=== PATIENT | male | born 1955 | race Caucasian/White ===

== ENCOUNTER 2017-06-27 09:37 | Day surgery (SDC) | payer BC ==
[~2017-06-27] VITALS: Ht 170.2 cm; Wt 77.6 kg
[~2017-06-27 09:37] MED LIST: PROPOFOL 200 MG/20 ML VIAL As Ordered ONE
[2017-06-27] MEDS ORDERED: NS 1,000 ML IV ONE (10:00)
--- NOTE | 2017-06-27 10:59 | ROOR ---
Patient Name: Marlon Epperson Procedure Date: 06/27/2017 10:41 AM Date of : 1955 Age: 61 Room: [facility] Gender: Male Note Status: Finalized Procedure: Total Colonoscopy to Cecum Indications: High risk colon cancer surveillance: Personal history of colonic polyps, Incidental - Follow-up for history of colon polyps of uncertain behavior Providers: Bret Ruiz MD Referring MD: Xavier Turner MD Requesting Provider: Medicines: Monitored Anesthesia Care Complications: No immediate complications. Procedure: Pre-Anesthesia Assessment: - The heart rate, respiratory rate, oxygen saturations, blood pressure, adequacy of pulmonary ventilation, and response to care were monitored throughout the procedure. The Colonoscope was introduced through the anus and advanced to the cecum, identified by appendiceal orifice and ileocecal valve. The colonoscopy was performed without difficulty. The patient tolerated the procedure well. The quality of the bowel preparation was excellent. Findings: The perianal and digital rectal examinations were normal. Non-bleeding internal hemorrhoids were found during retroflexion. The hemorrhoids were small and Grade I (internal hemorrhoids that do not prolapse). Scattered small-mouthed diverticula were found in the recto-sigmoid colon, sigmoid colon and descending colon. The exam was otherwise without abnormality on direct and retroflexion views. Impression: - Non-bleeding internal hemorrhoids. - Diverticulosis in the recto-sigmoid colon, in the sigmoid colon and in the descending colon. - The examination was otherwise normal on direct and retroflexion views. - No specimens collected. - The exam was otherwise normal to the cecum. Recommendation: - Patient has a contact number available for emergencies. The signs and symptoms of potential delayed complications were discussed with the patient. Return to normal activities tomorrow. Written discharge instructions were provided to the patient. - High fiber diet. - Discharge patient to home. - Continue present medications. - Repeat colonoscopy in 5 years for surveillance. - Return to referring physician. - The findings and recommendations were discussed with the patient's family. Bret Ruiz MD Bret Ruiz MD 06/27/2017 10:59:31 AM This report has been signed electronically. Number of Addenda: 0 Note Initiated On: 06/27/2017 10:41 AM Estimated Blood Loss: Estimated blood loss: none.
[2017-06-27 11:19] VITALS: BP 141/94
== END 2017-06-27 11:20 | disposition home or self-care (01) ==
LOC: M OPP 09:37
PROVIDERS: ATTEND Internal Medicine Gastroenterology
DX: Z09 Encounter for follow-up examination after completed treatment for conditions other than malignant neoplasm (principal); D37.4 Neoplasm of uncertain behavior of colon; Z86.010 Personal history of colon polyps; K64.0 First degree hemorrhoids; K57.30 Diverticulosis of large intestine without perforation or abscess without bleeding; M25.60 Stiffness of unspecified joint, not elsewhere classified; Z87.891 Personal history of nicotine dependence

== ENCOUNTER 2017-11-02 17:35 | Emergency (ER) | payer BC | END 2017-11-02 21:24 | disposition home or self-care (01) | LOC: M ED 17:35 | DX: R60.0 Localized edema (principal) | CPT/HCPCS: 93971 ==

== ENCOUNTER → 2020-08-06 | Outpatient (REF) | payer OTHER ==
[2020-08-08 07:07] LABS: PSA % FREE 6.3 % (.); PSA FREE 0.31 ng/mL; PSA TOTAL 4.9 ng/mL (0.0-4.0)
== END ==
LOC: M LABSMT 09:49
PROVIDERS: ATTEND Nurse Practitioner Family
DX: R97.20 Elevated prostate specific antigen [PSA] (principal)

== ENCOUNTER → 2020-09-09 | Outpatient (CLI) | payer OTHER ==
--- NOTE | 2020-09-09 14:47 | REPPI ---
INDICATION: ELEVATED PSA. COMPARISON: None. TECHNIQUE: Transrectal prostate ultrasound performed. FINDINGS: Prostate measures 3.1 x 2.1 x 4.2 cm, total volume 14.3 mL. Echotexture is heterogeneous. Tiny cysts and calcifications are noted in the prostate. No focal mass is seen. Seminal vesicles are symmetrical. IMPRESSION: Ultrasound guidance was provided for Dr. Negro who performed ultrasound-guided biopsy of the prostate. <Electronically signed by Regan Das > 09/09/20 [id number]
== END ==
LOC: M SMT PRO 08:18
PROVIDERS: ATTEND Urology
DX: C61 Malignant neoplasm of prostate (principal)
CPT/HCPCS: 76872; G0416

== ENCOUNTER → 2020-09-30 | Outpatient (CLI) | payer OTHER ==
[~2020-09-30] MED LIST changes: +ATOR40TA75 PO; -PROPOFOL 200 MG/20 ML VIAL As Ordered ONE
--- NOTE | 2020-10-01 07:40 | ECGEPIP ---
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
== END ==
LOC: M EKG 15:15
PROVIDERS: ATTEND Urology
DX: Z01.818 Encounter for other preprocedural examination (principal); C61 Malignant neoplasm of prostate

== ENCOUNTER → 2020-09-30 | Outpatient (CLI) | payer OTHER ==
[2020-09-30 17:29] LABS: HEMOGLOBIN 14.5 g/dl (13.5-17.5); MEAN CORPUSCULAR HEMOGLOBIN 30.2 pg (27.0-33.0); MEAN CORPUSCULAR HGB CONC 32.2 g/dl (32.0-36.5); MEAN CORPUSCULAR VOLUME 93.8 fl (80.0-96.0); PLATELET COUNT, AUTOMATED 227 10^3/uL (150-450); WHITE BLOOD COUNT 7.3 10^3/uL (4.0-10.0)
[2020-09-30 17:40] LABS: INR 0.96
[2020-09-30 17:41] LABS: PARTIAL THROMBOPLASTIN TIME 33.6 SECONDS (24.2-38.5)
[2020-09-30 17:46] LABS: BLOOD UREA NITROGEN 14 MG/DL (7-18); CALCIUM LEVEL 8.5 MG/DL (8.8-10.2); CARBON DIOXIDE LEVEL 30 MEQ/L (21-32); CHLORIDE LEVEL 103 MEQ/L (98-107); GLOMERULAR FILTRATION RATE > 60.0 (>49); GLUCOSE, FASTING 96 MG/DL (70-100); POTASSIUM SERUM 5.1 MEQ/L (3.5-5.1); SODIUM LEVEL 139 MEQ/L (136-145)
--- NOTE | 2020-10-01 04:05 | REPPI ---
INDICATION: PRE OP COMPARISON: 12/02/2006 TECHNIQUE: PA and lateral. FINDINGS: The mediastinum and cardiac silhouette are normal. The lung brady are clear and without acute consolidation, effusion, or pneumothorax. The skeletal structures are intact and normal. IMPRESSION: No acute cardiopulmonary process. <Electronically signed by Ortiz Garrison > 10/01/20 1459
== END ==
LOC: M PLAIMG 14:22
PROVIDERS: ATTEND Urology
DX: Z01.818 Encounter for other preprocedural examination (principal); C61 Malignant neoplasm of prostate

== ENCOUNTER → 2020-10-03 | Outpatient (CLI) | payer OTHER | LOC: M LABSMTC 12:14 | PROVIDERS: ATTEND Anesthesiology | DX: Z01.812 Encounter for preprocedural laboratory examination (principal); Z20.822 Contact with and (suspected) exposure to COVID-19 ==

== ENCOUNTER 2020-10-08 09:03 | Inpatient (IN) | payer OTHER ==
[~2020-10-08] VITALS: Ht 167.6 cm; Wt 80.2 kg
[~2020-10-08 09:03] MED LIST changes: +HEPARIN SOD (PORCINE) 5000UNITS/ML 1ML VIAL/SYRINGE SQ ONE; +LIDOCAINE 1% MDV 20ML VIAL SQ PRN; +LR 1,000 ML IV ONE; +ceFAZolin SOD 2 GM in IV 1 EA IV ONE
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
--- OUTSIDE RECORDS SUMMARY | 2020-10-08 09:09 | CCD ---
Author Author [facility] [employer] Organization [facility] [employer] Address Unknown Phone Unavailable Care Team Providers Care Concession Attendant Name Role Phone Amandeep Negro Unavailable PROBLEMS Type Condition ICD9-CM Code [id number] Code Onset Dates Condition S tatus SNOMED Code Notes Problem Elevated PSA R97.20 Active 193260290 Problem Prostate cancer C61 Active 382918792 ALLERGIES No Known Allergies ENCOUNTERS from 1955 to 2020-09-19 Encounter Location Date Provider Diagnosis [facility] [address] [facility] [facility] [place] [address] Aug Amandeep Negro Prostate cancer C61 IMMUNIZATIONS No Information SOCIAL HISTORY Tobacco Use: Social History Observation Description Date Details (start date - stop date) Former Smoker Sex Assigned At : Social History Observation Description Sex Assigned At Unknown Language: Question Answer Notes Languages spoken: Vincentian Orthodox: Question Answer Notes Orthodox No congregational beliefs that would impact health care. Alcohol [...] FOR REFERRAL No Information VITAL SIGNS Weight 178 lbs Aug, Height 66 in Aug, BMI 28.73 kg/m2 Aug, Heart Rate 66 /min Aug, Respiratory Rate 18 /min Aug, Temperature 97.3 degrees Fahrenheit 26 Cole, 2021 Oximetry 99% Aug, Blood pressure systolic 108 mm Hg Aug, Blood pressure diastolic 62 mm Hg Aug, MEDICATIONS Medication SIG (Take, Route, Frequency, Duration) Notes Start Da te End Date Status Ciprofloxacin HCl 500 MG 1 tablet the night before yo ur biopsy and 1 the morning of Orally every 12 hrs for 1 days Jul, Not-Taking Fleet Enema 7-19 GM/118ML as directed Rectal the morni ng of your biopsy for 1 days Jul, Not-Taking Atorvastatin Calcium 40 MG 1 tablet Orally Once a day for 30 day(s) Active PROCEDURES No Information RESULTS No Results REASON FOR VISIT Trus f/u MEDICAL (GENERAL) HISTORY Type Description Date Medical [...] Notes Treatment Notes Treatm ent Clinical Notes Aug, Prostate cancer (ICD-10 - C61) Prostate cancer material was printed,Prostatectomy material was printed - pathology results explained - treatment options discussed in detail - patient will consider treatment options and f/u in a week or so to decide on treatment Aug, Other Radiation therapy: external material was printed PLAN OF TREATMENT Treatment Notes Assessment Notes Clinical Notes Prostate cancer Prostate cancer material was printed,Prostatectomy material was printed - pathology results explained- treatment options discussed in detail- patient will consider treatment options and f/u in a week or so to decide on treatment Next Appt Details 1-3 wks Reason:discuss prostate cancer t reatment Provider Name:Amandeep Negro, 02:00:00 PM, [address], [place], [address], Follow Up:1-3 wksdisckalpesh prostate cancer treatment Insurance Providers Payer Name Payer Address Payer Phone Insured Name Patient Relati onship to Insured Coverage Start Date Coverage End Date [facility] [address] [address] [facility] [phone] JAYJAY BETH self
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
--- OUTSIDE RECORDS SUMMARY | 2020-10-08 09:10 | CCD ---
Author Author [facility] Organization [facility] Address Unknown Phone Unavailable Support Name Relationship Address Phone NINI [place] [address] NO, EMERGENCY Next Of Kin [address] [place] [address] [employer] Next Of Kin [address] [place] [address] ORLIN BETH Next Of Kin [address] [place] [address] NO, EMERGENCY ECON [address] [place] [address] Unavailable Re-disclosure Warning The records that you are about to access may contain information from federally-assisted alcohol or drug abuse programs. If such information is present, then the following federally mandated warning applies: This information has been disclosed to you from records protected by federal confidentiality rules (42 CFR part 2). The federal rules prohibit you from making any further disclosure of this information unless further disclosure is expressly permitted by the written consent of the person to whom it pertains or as otherwise permitted by 42 CFR part 2. A general authorization for the release of medical or other information is NOT sufficient for this purpose. The Federal rules restrict any use of the information to criminally investigate or prosecute any alcohol or drug abuse patient.The records that you are about to access may contain highly sensitive health information, the redisclosure of which is protected by Article 27-F of the [facility] Public Health law. If you continue you may have access to information: Regarding HIV / AIDS; Provided by facilities licensed or operated by the [facility] Office of Mental Health; or Provided by the [facility] Office for People With Developmental Disabilities. If such information is present, then the following [facility] mandated warning applies: This information has been disclosed to you from confidential records which are protected by state law. State law prohibits you from making any further disclosure of this information without the specific written consent of the person to whom it pertains, or as otherwise permitted by law. Any unauthorized further disclosure in violation of state law may result in a fine or long term sentence or both. A general authorization for the release of medical or other information is NOT sufficient authorization for further disc losure. Family History Family Member Name Family Member Gender Family Member Status Date o f Status Description Data Source(s) Unknown Unknown Problem MEDENT ([facility]) mother/father/brother Unknown Female Problem [facility] ([facility]) Encounters Encounter Providers Location Date Indications Data Source(s ) Outpatient [address] [facility] [id number] 09/23/2020 12:00:00 AM EST eCW1 ([facility]) Outpatient [address] [facility] [id number] 09/16/2020 12:00:00 AM EST eCW1 ([facility]) (Trus Bx1) Urology [address] [place] [address] 09/09/2020 12:00:00 AM EST eCW1 ([facility]) Unknown [address] [facility] [address] 08/11/2020 12:00:00 AM EST eCW1 ([facility]) Outpatient [address] [facility] [id number] 08/06/2020 12:00:00 AM EST eCW1 ([facility]) Medications Medication Brand Name Start Date Product Form Dose Route Admi nistrative Instructions Pharmacy Instructions Status Indications Reaction Description Data Source(s) Sodium Phosphate, Dibasic 59.3 MG/ML / S odium Phosphate, Monobasic 161 MG/ML Enema Fleet Enema 7-19 GM/118ML Fleet Enema 7-19 GM/118ML 08/11/2020 12:00:00 AM EST active Fleet Enema 7-19 GM/118ML eCW1 ([facility]) Sodium Phosphate, Dibasic 59.3 MG/ML / S odium Phosphate, Monobasic 161 MG/ML Enema Fleet Enema 7-19 GM/118ML Fleet Enema 7-19 GM/118ML 08/11/2020 12:00:00 AM EST suspended Fleet Enema 7- 19 GM/118ML eCW1 ([facility]) 19-7 gram/118 mL 08/11/2020 12:00:00 AM EST enema 133 INSERT 1 ENEMA RECTALLY THE MORNING OF YOUR BIOPSY DIRECTED INSERT 1 ENEMA RECTALLY THE MORNING OF YOUR BIOPSY DIRECTED SOLD: 08/11/2020 [facility] Ciprofloxacin 500 MG Oral Tablet Ciprofloxacin HCl 500 MG Ciprofloxacin HCl 500 MG 08/11/2020 12:00:00 AM EST active Ciprofloxacin HCl 500 MG eCW1 ([facility]) Sodium Phosphate, Dibasic 59.3 MG/ML / S odium Phosphate, Monobasic 161 MG/ML Enema Fleet Enema 7-19 GM/118ML Fleet Enema 7-19 GM/118ML 08/11/2020 12:00:00 AM EST active Fleet Enema 7-19 GM/118ML eCW1 ([facility]) Ciprofloxacin 500 MG Oral Tablet Ciprofloxacin HCl 500 MG Ciprofloxacin HCl 500 MG 08/11/2020 12:00:00 AM EST active Ciprofloxacin HCl 500 MG eCW1 ([facility]) Sodium Phosphate, Dibasic 59.3 MG/ML / S odium Phosphate, Monobasic 161 MG/ML Enema Fleet Enema 7-19 GM/118ML Fleet Enema 7-19 GM/118ML 08/11/2020 12:00:00 AM EST active Fleet Enema 7-19 GM/118ML eCW1 ([facility]) Sodium Phosphate, Dibasic 59.3 MG/ML / S odium Phosphate, Monobasic 161 MG/ML Enema Fleet Enema 7-19 GM/118ML Fleet Enema 7-19 GM/118ML 08/11/2020 12:00:00 AM EST suspended Fleet Enema 7- 19 GM/118ML eCW1 ([facility]) 500 mg 08/11/2020 12:00:00 AM EST tablet 2 TAKE ONE TABLET BY MOUTH THE NIGHT BEFORE YOUR BIOPSY AND ONE TABLET THE MORNING OF, SEPARATE BY 12 HOURS TAKE ONE TABLET BY MOUTH THE NIGHT BEFORE YOUR BIOPSY AND ONE TABLET THE MORNING OF, SEPARATE BY 12 HOURS SOLD: 08/11/2020 [facility] Ciprofloxacin 500 MG Oral Tablet Ciprofloxacin HCl 500 MG Ciprofloxacin HCl 500 MG 08/11/2020 12:00:00 AM EST active Ciprofloxacin HCl 500 MG eCW1 ([facility]) Ciprofloxacin 500 MG Oral Tablet Ciprofloxacin HCl 500 MG Ciprofloxacin HCl 500 MG 08/11/2020 12:00:00 AM EST suspended Ciprofloxacin HCl 500 MG eCW1 ([facility]) Ciprofloxacin 500 MG Oral Tablet Ciprofloxacin HCl 500 MG Ciprofloxacin HCl 500 MG 08/11/2020 12:00:00 AM EST suspended Ciprofloxacin HCl 500 MG eCW1 ([facility]) Insurance Providers Payer name Policy type / Coverage type Policy ID Covered alliance party ID Covered alliance party's relationship to ivy Policy Ivy Plan Information [facility] [id number] SP [id number] [facility] [id number] SP [id number] [facility] [id number] S [id number] BCBS/[employer] Commercial [id number] Self KH [id number] [place] PPO 302/307 [id number] SP [id number] [employer] BCBS B [id number] S [id number] [id number] [employer] Commercial [id number] Self KH [id number] [place] PPO 302/307 [id number] SP [id number] [employer] [place] Commercial [id number] Self [id number] BCBS [place] PPO 302/307 [id number] SP [id number] [employer] [place] Commercial Self Problems, Conditions, and Diagnoses Code Display Name Description Problem Type Effective Dates Data Source(s) N39.0 Urinary tract infectious disease UTI (urinary tract in fection) Problem 09/23/2020 12:00:00 AM EST eCW1 ([facility]) Z01.818 Pre-procedure evaluation check Preop testing Problem 09/23/2020 12:00:00 AM EST eCW1 ([facility]) C61 Prostate cancer Prostate cancer Problem 09/16/2020 12:0 0:00 AM EST eCW1 ([facility]) R97.20 Elevated PSA Elevated PSA Problem 08/06/2020 12:00:00 A M EST eCW1 ([facility]) Results ID Date Data Source [id number] 10/03/2020 10:45:00 AM EST [facility] Name Value Range Interpretation Code Description Data Phyllis rce(s) Supporting Document(s) SARS coronavirus 2 RNA Not Detected [facility] [place] This lab was ordered by [facility] and reported by [facility]. ID Date Data Source PSA FREE & TOTAL 08/06/2020 12:00:00 AM EST eCW1 ([facility]) Name Value Range Interpretation Code Description Data Phyllis rce(s) Supporting Document(s) 4.9 0.0-4.0 [facility] ([facility]) . [facility]) 6.3 . eCW1 ([facility]) 0.31 N/A eCW1 ([facility]) ID Date Data Source URINE CULTURE 08/06/2020 12:00:00 AM EST eCW1 ([facility]) Name Value Range Interpretation Code Description Data Phyllis rce(s) Supporting Document(s) eCW1 ([facility]) Procedure Social History Code Duration Value Status Description Data Source(s ) Smoking 09/23/2020 12:00:00 AM EST Former Smoker completed Former Smoker eCW1 ([facility]) Smoking 09/16/2020 12:00:00 AM EST Former Smoker completed Former Smoker eCW1 ([facility]) Smoking 09/09/2020 12:00:00 AM EST Former Smoker completed Former Smoker eCW1 ([facility]) Smoking 08/06/2020 12:00:00 AM EST Former Smoker completed Former Smoker eCW1 ([facility]) Smoking 08/06/2020 12:00:00 AM EST Former Smoker completed Former Smoker eCW1 ([facility]) Vital Signs ID Date Data Source UNK Name Value Range Interpretation Code Description Data Source(s) Diastolic blood pressure 72 mm[Hg] 72 mm[Hg] eCW1 ([facility]) Systolic blood pressure 144 mm[Hg] 144 mm[Hg] e CW1 ([facility]) Body temperature 97.6 [degF] 97.6 [degF] eCW1 ( [facility]) Respiratory rate 18 /min 18 /min eCW1 ([facility]) Heart rate 80 /min 80 /min eCW1 ([facility]) Body mass index (BMI) [Ratio] 29.37 kg/m2 29.37 kg/m2 eCW1 ([facility]) Body height 66 [in_i] 66 [in_i] eCW1 ([facility]) Body weight 182 [lb_av] 182 [lb_av] eCW[facility] Diastolic blood pressure 62 mm[Hg] 62 mm[Hg] eCW1 ([facility]) Systolic blood pressure 108 mm[Hg] 108 mm[Hg] e CW1 ([facility]) Body temperature 97.3 [degF] 97.3 [degF] eCW1 ( [facility]) Respiratory rate 18 /min 18 /min eCW1 ([facility]) Heart rate 66 /min 66 /min eCW1 ([facility]) Body mass index (BMI) [Ratio] 28.73 kg/m2 28.73 kg/m2 eCW1 ([facility]) Body height 66 [in_i] 66 [in_i] eCW1 ([facility]) Body weight 178 [lb_av] 178 [lb_av] eCW1 ([facility]) Diastolic blood pressure 84 mm[Hg] 84 mm[Hg] eCW1 ([facility]) Systolic blood pressure 149 mm[Hg] 149 mm[Hg] e CW1 ([facility]) Body temperature 97.8 [degF] 97.8 [degF] eCW1 ( [facility]) Respiratory rate 18 /min 18 /min eCW1 ([facility]) Heart rate 71 /min 71 /min eCW1 ([facility]) Body mass index (BMI) [Ratio] 27.95 kg/m2 27.95 kg/m2 eCW1 ([facility]) Body height 66 [in_i] 66 [in_i] eCW1 ([facility]) Body weight 173.2 [lb_av] 173.2 [lb_av] eCW1 ([facility]) Diastolic blood pressure 78 mm[Hg] 78 mm[Hg] eCW1 ([facility]) Systolic blood pressure 130 mm[Hg] 130 mm[Hg] e CW1 ([facility]) Body temperature 96.9 [degF] 96.9 [degF] eCW1 ( [facility]) Respiratory rate 18 /min 18 /min eCW1 ([facility]) Heart rate 63 /min 63 /min eCW1 ([facility]) Body mass index (BMI) [Ratio] 28.08 kg/m2 28.08 kg/m2 eCW1 ([facility]) Body height 66 [in_i] 66 [in_i] eCW1 ([facility]) Body weight 174 [lb_av] 174 [lb_av] eCW1 ([facility]) Patient Treatment Plan of Care Planned Activity Planned Date Details Description Data Source (s) Ciprofloxacin 500 MG Oral Tablet 08/11/2020 12:00:00 AM EST eCW1 ([facility]) Sodium Phosphate, Dibasic 59.3 MG/ML / S odium Phosphate, Monobasic 161 MG/ML Enema 08/11/2020 12:00:00 AM EST eCW1 ([facility]) Ciprofloxacin 500 MG Oral Tablet 08/11/2020 12:00:00 AM EST eCW1 ([facility]) Sodium Phosphate, Dibasic 59.3 MG/ML / S odium Phosphate, Monobasic 161 MG/ML Enema 08/11/2020 12:00:00 AM EST eCW1 ([facility])
--- OUTSIDE RECORDS SUMMARY | 2020-10-08 09:10 | CCD ---
Author Author [facility] [employer] [facility] Organization [facility] [employer] Address Unknown Phone Unavailable Care Team Providers Care Auditor/Quality Name Role Phone Bryant Lyons Unavailable PROBLEMS Type Condition ICD9-CM Code LHU01-DD Code Onset Dates Condition S tatus SNOMED Code Notes Problem Elevated PSA R97.20 Active [id number] ALLERGIES No Known Allergies ENCOUNTERS from 1955 to 2020-08-11 Encounter Location Date Provider Diagnosis [facility] Urology [address] [place] [address] Jul Bryant Lyons Elevated PSA R97.20 and UTI (urinary tra ct infection) N39.0 IMMUNIZATIONS No Information SOCIAL HISTORY Tobacco Use: Social History Observation Description Date Details (start date - stop date) Former Smoker Sex Assigned At : Social History Observation Description Sex Assigned At Unknown Language: Question Answer Notes Languages spoken: Romansh Uatsdin: Question Answer Notes Uatsdin No yazidi beliefs that would impact health care. Alcohol [...] FOR REFERRAL No Information VITAL SIGNS Weight 174 lbs Jul, Height 66 in Jul, BMI 28.08 kg/m2 Jul, Heart Rate 63 /min Jul, Respiratory Rate 18 /min Jul, Temperature 96.9 degrees Fahrenheit Jul, Oximetry 94 Jul, Blood pressure systolic 130 mm Hg Jul, Blood pressure diastolic 78 mm Hg Jul, MEDICATIONS Medication SIG (Take, Route, Frequency, Duration) [...] 30 day(s) Active PROCEDURES No Information RESULTS REASON FOR VISIT ELEVATED PSA MEDICAL (GENERAL) HISTORY Type Description Date [...] Notes Jul, Elevated PSA (ICD-10 - R97.20) Discussed reasons for elevated PSA. Given his last PSA was 3 months ago we will repeat this. If still elevated then will get him set up for a TRUS bx. Pt is in agreement with plan of care. Jul, UTI (urinary tract infection) (ICD-10 - N39.0) Will send urine culture to rule out infection causing elevated PSA. PLAN OF TREATMENT Medication Medication Name Sig Start Date Stop Date Ciprofloxacin HCl 500 MG 1 tablet the night before yo ur biopsy and 1 the morning of Orally every 12 hrs for 1 days Jul, Fleet Enema 7-19 GM/118ML as directed Rectal the morni ng of your biopsy for 1 days Jul, Treatment Notes Assessment Notes Clinical Notes Elevated PSA Discussed reasons fo r elevated PSA. Given his last PSA was 3 months ago we will repeat this. If still elevated then will get him set up for a TRUS bx. Pt is in agreement with plan of care. UTI (urinary tract infection) Will send urine culture to rule out infection causing elevated PSA. Next Appt Details will call Reason: Provider Name:Amandeep Negro, 08:15:00 AM, [address], [place], [address], Provider Name:Amandeep Negro, 01:00:00 PM, [address], [place], [address], Insurance Providers Payer Name Payer Address Payer Phone Insured Name Patient Relati onship to Insured Coverage Start Date Coverage End Date [facility] [address] [address] [facility] [id number] JAYJAY BETH self
[2020-10-08] MEDS ORDERED: KETAMINE HCL 200 MG/20 ML VIAL As Ordered ONE (09:26)
[2020-10-08] MEDS ORDERED: MIDAZOLAM INJ 2MG/2ML VIAL (J2250 PER 1MG) As Ordered ONE (09:26)
[2020-10-08] MEDS ORDERED: LIDOCAINE 2% 100MG/5ML SDV (FOR ANES.) As Ordered ONE (09:26)
[2020-10-08] MEDS ORDERED: fentaNYL 100 MCG/2 ML INJECTION (J3010) As Ordered ONE (09:26)
[2020-10-08] MEDS ORDERED: propofoL 200 MG/20 ML VIAL As Ordered ONE (09:26)
[2020-10-08] MEDS ORDERED: ONDANSETRON 4MG/2ML VIAL As Ordered ONE (09:27)
[2020-10-08] MEDS ORDERED: dexameTHASONE 4 MG/ML 1ML VIAL (J1100 PER 1MG) As Ordered ONE (09:27)
[2020-10-08] MEDS ORDERED: ROCURONIUM BROMIDE 50 MG/5 ML VIAL As Ordered ONE ×3 (09:27→14:52)
[2020-10-08] MEDS ORDERED: LIDOCAINE 1% SDV 30ML VIAL As Ordered ONE (10:20)
[2020-10-08] MEDS ORDERED: BUPIVACAINE HCL 0.25% 30ML VIAL As Ordered ONE (10:20)
[2020-10-08] MEDS ORDERED: GLYCOPYRROLATE INJ 0.2 MG/ML 2 ML VIAL As Ordered ONE (12:51)
[2020-10-08] MEDS ORDERED: SUGAMMADEX SODIUM 500 MG/5 ML VIAL (BRIDION) As Ordered ONE (12:54)
[2020-10-08] MEDS ORDERED: ACETAMINOPHEN 1000MG 100ML IV BTL (OFIRMEV) (J0131 PER 10MG) As Ordered ONE (12:55)
[2020-10-08] MEDS ORDERED: KETOROLAC 60MG 2ML VIAL As Ordered ONE (13:04)
[2020-10-08] MEDS ORDERED: ePHEDrine SULFATE 25 MG/5 ML(5MG/ML) SYRINGE As Ordered ONE (13:05)
[2020-10-08] MEDS ORDERED: HYDROmorphone HCL 2 MG/ML 1ML VIAL (J1170) As Ordered ONE (13:09)
[2020-10-08] MEDS ORDERED: ceFAZolin 2 GM/D5W 50 ML IV BAG (J0690 PER 500MG) As Ordered ONE (15:57)
[2020-10-08] MEDS ORDERED: NS 1,000 ML IV SCH (18:12)
[2020-10-08] MEDS ORDERED: ONDANSETRON 4MG/2ML VIAL IV PRN ×2 (18:15→19:00)
[2020-10-08] MEDS ORDERED: MORPHINE 2 MG/ML 1ML VIAL (J2270) IV PRN (18:15)
[2020-10-08] MEDS ORDERED: ACETAMINOPHEN TAB 650MG DOSE (2X325MG) PO PRN (18:15)
[2020-10-08] MEDS ORDERED: PERCOCET 5MG/325MG TAB PO PRN ×2 (18:15→19:00)
[2020-10-08 18:31] LABS: HEMATOCRIT 42.3 % (42.0-52.0); HEMOGLOBIN 14.1 g/dl (13.5-17.5); MEAN CORPUSCULAR HGB CONC 33.3 g/dl (32.0-36.5); PLATELET COUNT, AUTOMATED 215 10^3/uL (150-450); WHITE BLOOD COUNT 13.7 10^3/uL (4.0-10.0)
[2020-10-08] MEDS ORDERED: LR 1,000 ML IV SCH (19:00)
[2020-10-08] MEDS ORDERED: HYDROMORPHONE HCL 0.5 MG/ 0.5 ML SYRINGE (J1170 PER 1) IV PRN (19:00)
[2020-10-08] MEDS ORDERED: fentaNYL 100 MCG/2 ML INJECTION (J3010) IV PRN (19:00)
[2020-10-08] MEDS ORDERED: METOCLOPRAMIDE INJ 10MG/2ML VIAL (J2765 PER 1) IV PRN (19:00)
[2020-10-08 19:01] LABS: BLOOD UREA NITROGEN 11 MG/DL (7-18); CALCIUM LEVEL 8.5 MG/DL (8.8-10.2); CARBON DIOXIDE LEVEL 27 MEQ/L (21-32); CHLORIDE LEVEL 105 MEQ/L (98-107); CREATININE FOR GFR 0.99 MG/DL (0.70-1.30); GLOMERULAR FILTRATION RATE > 60.0 (>49); GLUCOSE, FASTING 149 MG/DL (70-100); POTASSIUM SERUM 3.8 MEQ/L (3.5-5.1); SODIUM LEVEL 140 MEQ/L (136-145)
--- NOTE | 2020-10-08 19:08 | ROOPDOC ---
[facility] Report Of Operation Report of Operation DATE OF PROCEDURE: 10/08/20 PREPROCEDURE DIAGNOSIS: Prostate cancer. POSTPROCEDURE DIAGNOSIS: Prostate cancer. PROCEDURE: Robotic-assisted laparoscopic radical prostatectomy with bilateral pelvic lymph node dissection. SURGEON: Lynnette Smith MD PATIENT ACCOUNT ANALYST: Noni Humphrey NP ANESTHESIA: General. OPERATIVE INDICATIONS: This is a 65 year old male with intermediate risk clinical T1c Fleming 3+4 prostate cancer. After a discussion of the options for treatment, he elected to undergo the above procedure. DESCRIPTION OF PROCEDURE: The patient was brought to the operating room and general anesthesia was induced. Prophylactic antibiotics were infused. He was then placed in the dorsal lithotomy position and prepped and draped in the usual sterile fashion. At this point, a Cast catheter was inserted into the bladder and the balloon was filled with 10 mL of sterile water. We then made a midline incision just above the umbilicus for an 8 mm port. A Veress needle was utilized to achieve pneumoperitoneum. Next, an 8 mm port was inserted into the incision and subsequently a camera was inserted. There were no injuries from the Veress needle or initial trocar placement. At this point, we placed the remaining ports, including a 12 mm assistant producer port and then three robotic ports in the usual configuration. Once all the ports were placed, the robot was docked. Lysis of adhesions between the sigmoid colon and abdominal wall was then performed. The bladder was then released from the anterior abdominal wall using electrocautery. Once the bladder was dropped, the fat overlying the prostate was cleared using electrocautery. The superficial dorsal vein was controlled with electrocautery. The endopelvic fascia was opened on both sides and the dorsal venous complex was cleared. Next, a #0 Vicryl [id number] stitch was placed around the dorsal venous complex. Once that was done, the bladder was opened and dissected away from the prostate. At this point, the prostate was lifted up. The vasa deferentia were identified in the midline. They were then ligated and transected. The seminal vesicles were also dissected off bilaterally. The rectum was safely mobilized away from the prostate. The neurovascular bundle was carefully dissected off on the left side using cold scissors. Bilateral prostatic pedicles were taken using the Harmonic scalpel. The pedicles were carried towards the apex. After taking care of the pedicles and mobilizing the rectum off the prostate below, the prostate was only connected by the urethra. At this point, the dorsal venous complex was transected with electrocautery. The urethra was then opened and the catheter was withdrawn and the posterior urethra was transected, thus freeing the prostate. At this point, we checked for hemostasis and it did appear very good. Next, we performed bilateral pelvic lymph node dissection. This was done in a standard fashion. The limits of dissection were the iliac vein proximally, the obturator nerve distally, the pelvic sidewall laterally, and the bladder medially. All lymphatic tissue within these limits was removed. I performed the same procedure on both the right and left sides. Hemostasis was then obtained wi th bipolar electrocautery. The lymphatic packets were then placed in separate Endo Catch bags for future retrieval. Once hemostasis was confirmed, I then moved on to perform the vesicourethral anastomosis. This was performed with a Quill stitch in a running fashion. Once this was done, the final #20-Bulgarian Cast catheter was placed. The balloon was filled with 15 mL of sterile water. Upon completion of the vesicourethral anastomosis, it was tested by filling the bladder with sterile saline water. The anastomosis appeared to be watertight. At this point, the prostate and seminal vesicles were placed in an Endo Catch bag for future retrieval. The robot was then undocked. A Jennifer fascial closure device was utilized to place a #0 Vicryl suture between the fascia of the 12 mm assistant producer port. At this point, a Magnus- Cornejo drain was brought in through the left robotic port skin site and the drain was positioned anterior to the bladder. The drain was secured to the skin with #2-0 Ethilon suture. Next, all the remaining ports were removed and there did not appear to be any bleeding from any of the port sites. The prostate, as well as the lymphatic packets were then extracted from the camera port site after the skin was extended. The fascia in this incision was then closed with a running #0 Vicryl stitch. The previously placed #0 Vicryl free ties through the assistant producer port were then tied down and all incisions were irrigated. Last, all of the incisions were closed with running subcuticular #4-0 Monocryl sutures. Local anesthesia was applied. Dermabond was then applied to the incisions. This marked the conclusion of the procedure. The patient was then taken out of the dorsal lithotomy position, awakened from anesthesia and transported to the recovery room in stable condition. ESTIMATED BLOOD LOSS: 175 mL. COMPLICATIONS: None. SPECIMENS: Prostate and seminal vesicles, right pelvic lymph nodes, left pelvic lymph nodes. PLAN: The patient will be admitted to the hospital postoperatively, and he will likely be discharged home within the next 1-2 days. LYNNETTE SMITH MD Oct 08, 2020 19:08
[2020-10-08 19:30] VITALS: BP 109/77
[2020-10-08 20:00] VITALS: BP 108/76
[2020-10-08] MEDS: DOCUSATE SODIUM 100MG CAPSULE PO SCH (20:10)
[2020-10-08] MEDS: ceFAZolin SOD 1 GM in D5W MINI-BAG PLUS 50 ML IV SCH (20:11)
[2020-10-08] MEDS: HEPARIN SOD (PORCINE) 5000UNITS/ML 1ML VIAL/SYRINGE SC SCH (20:13)
[2020-10-08 21:00] VITALS: BP 110/74
[2020-10-08 22:00] VITALS: BP 109/72
[2020-10-08 23:00] VITALS: BP 109/70
[2020-10-09] VITALS: BP 109/70
[2020-10-09] MEDS: HEPARIN SOD (PORCINE) 5000UNITS/ML 1ML VIAL/SYRINGE SC SCH ×2 (02:55→10:00)
[2020-10-09] MEDS: PERCOCET 5MG/325MG TAB PO PRN ×2 (03:19→10:23)
[2020-10-09 05:15] VITALS: BP 117/69
[2020-10-09] MEDS: ceFAZolin SOD 1 GM in D5W MINI-BAG PLUS 50 ML IV SCH (05:36)
[2020-10-09 06:41] LABS: HEMATOCRIT 38.1 % (42.0-52.0); HEMOGLOBIN 12.6 g/dl (13.5-17.5); MEAN CORPUSCULAR HEMOGLOBIN 30.4 pg (27.0-33.0); MEAN CORPUSCULAR HGB CONC 33.1 g/dl (32.0-36.5); MEAN CORPUSCULAR VOLUME 91.8 fl (80.0-96.0); PLATELET COUNT, AUTOMATED 206 10^3/uL (150-450); RED BLOOD COUNT 4.15 10^6/uL (4.30-6.10); WHITE BLOOD COUNT 10.3 10^3/uL (4.0-10.0)
[2020-10-09 07:19] LABS: BLOOD UREA NITROGEN 13 MG/DL (7-18); CALCIUM LEVEL 7.7 MG/DL (8.8-10.2); CARBON DIOXIDE LEVEL 27 MEQ/L (21-32); CHLORIDE LEVEL 106 MEQ/L (98-107); CREATININE FOR GFR 0.86 MG/DL (0.70-1.30); GLOMERULAR FILTRATION RATE > 60.0 (>49); GLUCOSE, FASTING 111 MG/DL (70-100); SODIUM LEVEL 139 MEQ/L (136-145)
--- NOTE | 2020-10-09 07:35 | IPNPDOC ---
Subjective Review oF Systems Chief Complaint The patient is a 65-year-old male admitted with a reason for visit of Prostate Cancer. Events since Last Encounter No acute events o/n. Good pain control. No n/v. Has no ambulated yet. No f/c/ns. Objective Physical Examination General Exam: Alert, Cooperative, No Acute Distress ABDOMEN EXAM: Soft, Tenderness (minimal), Other (incisions clean/dry/intact; DESTINI w/ serosanguinous output) Skin Exam: Nl turgor and temperature Neuro Exam: Normal Speech Psych Exam: Mental status NL, Mood NL Other physical findings catheter draining clear yellow urine Vital Signs/I&O Vital Signs Date Time Temp Pulse Resp B/P (MAP) Pulse Ox O2 Delivery O2 Flow Rate FiO2 10/09/20 05:15 98.5 65 17 117/69 (85) 98 Nasal Cannula 1.0 I&O- Last 24 Hours up to 6 AM 10/09/20 06:00 Intake Total 3260 ml Output Total 900 ml Balance 2360 ml Laboratory Data Labs 24H Laboratory Tests 2 10/08/20 18:20: Nucleated Red Blood Cells % (auto) 0.0, Anion Gap 8, Glomerular Filtration Rate > 60.0, Calcium Level 8.5L 10/09/20 06:13: Nucleated Red Blood Cells % (auto) 0.0, Anion Gap 6L, Glomerular Filtration Rate > 60.0, Calcium Level 7.7L CBC/BMP Laboratory Tests 10/08/20 18:20 10/09/20 06:13 Assessment/Plan Date Seen The patient was seen on 10/09/20. Patient Summary This is a 65 y/o M POD1 s/p RALP w/ BPLND. Doing well. Hb 12.6. Cr 0.9. Good UOP. Normal DESTINI output. Plan/VTE VTE Prophylaxis Ordered?: Yes VTE Exclusion Mechanical Proph: N/A:VTE Prophy Ordered VTE Exclusion Pharmacological: N/A:VTE Prophy Ordered Plan/Urinary Catheter Urinary Catheter: Other Catheter: (catheter will need to stay in for at least 7 days) Plan - d/c IVF - strict I/Os - percocet prn pain - ambulate - SCDs when in bed - SQH - incentive spirometry - CLD -> ADAT - likely discharge home later today w/ catheter (will remove DESTINI prior to discharge) LYNNETTE SMITH MD Oct 09, 2020 07:35
[2020-10-09] MEDS: DOCUSATE SODIUM 100MG CAPSULE PO SCH (07:59)
[2020-10-09] MEDS ORDERED: ATORVASTATIN 20 MG TAB PO SCH (09:00)
[2020-10-09 10:00] VITALS: BP 118/70
[2020-10-09 14:00] VITALS: BP 120/72
[2020-10-09] MEDS ORDERED: CIPR-249 PO (14:23)
[2020-10-09] MEDS ORDERED: PERCOCET PO (14:23)
[2020-10-09] MEDS ORDERED: DOK1CAP7 PO (14:23)
--- NOTE | 2020-10-10 08:27 | DSES ---
DISCHARGE SUMMARY DATE OF ADMISSION: 10/08/2020 DATE OF DISCHARGE: 10/09/2020 ADMITTING DIAGNOSIS: Prostate cancer. DISCHARGE DIAGNOSIS: Prostate cancer. ADMITTING PHYSICIAN: Amandeep Negro MD. DISCHARGE PHYSICIAN: Amandeep Negro MD. PROCEDURE PERFORMED: Robotic assisted laparoscopic radical prostatectomy with bilateral pelvic lymph node dissection. SURGEON: Amandeep Negro MD. HISTORY OF PRESENT ILLNESS: This is a 65-year-old male with intermediate risk prostate cancer who elected to undergo the above listed procedure for his treatment. He was admitted to the hospital after undergoing the surgery. HOSPITAL COURSE: The patient was admitted to the hospital after undergoing a robotic radical prostatectomy with bilateral pelvic lymph node dissection on October 08, 2020. His post-operative course was unremarkable. On post-operative day 1 all of his blood work was within normal limits, specifically his hemoglobin level was 12.6 and his serum creatinine was 0.9. He had good urine output. He had normal output from his Magnus-Cornejo drain. On post-operative day 1 he ambulated well without difficulty. He had good pain control with just oral pain medication. His diet was advanced and he tolerated a regular diet without nausea or vomiting. Since the patient was doing well he was deemed ready for discharge home on post-operative day 1. He was discharged home with a Cast catheter in place. His Magnus-Cornejo drain was removed prior to discharge. He will follow up in the urology clinic in approximately 1 week for catheter removal and to discuss pathology results.
== END 2020-10-09 17:55 | disposition home health service (06) | DRG 708 ==
LOC: M OR 09:03 → M MS5PR 19:15
PROVIDERS: ADMIT Urology; ATTEND Urology
PROC: 07BC4ZX Excision of Pelvis Lymphatic, Percutaneous Endoscopic Approach, Diagnostic (ICD-10-PCS; 2020-10-08)
PROC: 8E0W4CZ Robotic Assisted Procedure of Trunk Region, Percutaneous Endoscopic Approach (ICD-10-PCS; 2020-10-08)
PROC: 0VT04ZZ Resection of Prostate, Percutaneous Endoscopic Approach (ICD-10-PCS; principal; 2020-10-08 10:45)
DX: C61 Malignant neoplasm of prostate (principal); E78.00 Pure hypercholesterolemia, unspecified; Z79.899 Other long term (current) drug therapy; Z87.891 Personal history of nicotine dependence

== ENCOUNTER → 2020-10-28 | Outpatient (REF) | payer OTHER ==
[~2020-10-28] MED LIST changes: +CIPR-249 PO; +DOK1CAP7 PO; -HEPARIN SOD (PORCINE) 5000UNITS/ML 1ML VIAL/SYRINGE SQ ONE; -LIDOCAINE 1% MDV 20ML VIAL SQ PRN; -LR 1,000 ML IV ONE; +PERCOCET PO; -ceFAZolin SOD 2 GM in IV 1 EA IV ONE
== END ==
LOC: M PLALAB 12:41
PROVIDERS: ATTEND Urology
DX: C61 Malignant neoplasm of prostate (principal)

== ENCOUNTER → 2021-01-07 | Outpatient (REF) | payer OTHER ==
[2021-01-07 13:18] LABS: HEMATOCRIT 46.1 % (42.0-52.0); HEMOGLOBIN 14.5 g/dl (13.5-17.5); MEAN CORPUSCULAR HEMOGLOBIN 29.1 pg (27.0-33.0); MEAN CORPUSCULAR HGB CONC 31.5 g/dl (32.0-36.5); MEAN CORPUSCULAR VOLUME 92.4 fl (80.0-96.0); PLATELET COUNT, AUTOMATED 243 10^3/uL (150-450); RED BLOOD COUNT 4.99 10^6/uL (4.30-6.10); WHITE BLOOD COUNT 5.6 10^3/uL (4.0-10.0)
[2021-01-07 13:44] LABS: ALBUMIN 4.1 GM/DL (3.2-5.2); ALT/SGPT 30 U/L (12-78); BILIRUBIN,TOTAL 0.8 MG/DL (0.2-1.0); BLOOD UREA NITROGEN 17 MG/DL (7-18); CALCIUM LEVEL 8.4 MG/DL (8.8-10.2); CARBON DIOXIDE LEVEL 29 MEQ/L (21-32); CHLORIDE LEVEL 104 MEQ/L (98-107); CHOLESTEROL LEVEL 150 MG/DL (<200); CHOLESTEROL RISK RATIO 1.764 (<5); CREATININE FOR GFR 0.72 MG/DL (0.70-1.30); GLOMERULAR FILTRATION RATE > 60.0 (>49); GLUCOSE, FASTING 82 MG/DL (70-100); HDL CHOLESTEROL 85 MG/DL (>40); LDL CHOLESTEROL 52 MG/DL (<100); NON-HDL-C 65 MG/DL; POTASSIUM SERUM 4.5 MEQ/L (3.5-5.1); SODIUM LEVEL 137 MEQ/L (136-145); TOTAL PROTEIN 7.3 GM/DL (6.4-8.2); TRIGLYCERIDES LEVEL 63 MG/DL (<150)
== END ==
LOC: M PLALAB 12:43
PROVIDERS: ATTEND Family Medicine
DX: Z00.00 Encounter for general adult medical examination without abnormal findings (principal)

== ENCOUNTER → 2021-02-19 | Outpatient (CLI) | payer MEDICARE, OTHER | LOC: M PLALAB 08:11 | PROVIDERS: ATTEND Urology | DX: C61 Malignant neoplasm of prostate (principal) ==

== ENCOUNTER → 2021-05-25 | Outpatient (CLI) | payer MEDICARE, OTHER ==
[~2021-05-25] MED LIST changes: +DOK1CAP4 PO; -DOK1CAP7 PO
== END ==
LOC: M PLALAB 07:58
PROVIDERS: ATTEND Urology
DX: C61 Malignant neoplasm of prostate (principal)

== ENCOUNTER → 2021-08-28 | Outpatient (CLI) | payer MEDICARE | LOC: M PLALAB 13:42 | PROVIDERS: ATTEND Urology | DX: C61 Malignant neoplasm of prostate (principal) ==

== ENCOUNTER → 2021-12-23 | Outpatient (CLI) | payer MEDICARE | LOC: M PLALAB 15:30 | PROVIDERS: ATTEND Urology | DX: C61 Malignant neoplasm of prostate (principal) ==

== ENCOUNTER → 2022-01-29 | Outpatient (CLI) | payer MEDICARE ==
[2022-01-29 10:22] LABS: BASO # 0.1 10^3/uL (0.0-0.2); BASO % 1.5 % (0.0-1.0); EOS # 0.2 10^3/uL (0.0-0.5); EOS % 3.8 % (0.0-3.0); HEMATOCRIT 43.5 % (42.0-52.0); HEMOGLOBIN 14.5 g/dl (13.5-17.5); LYMPH % 24.6 % (24.0-44.0); MEAN CORPUSCULAR HEMOGLOBIN 30.5 pg (27.0-33.0); MEAN CORPUSCULAR HGB CONC 33.3 g/dl (32.0-36.5); MEAN CORPUSCULAR VOLUME 91.6 fl (80.0-96.0); MONO # 0.7 10^3/uL (0.0-0.8); MONO % 17.2 % (2.0-8.0); NEUTROPHILS # 2.1 10^3/uL (1.5-8.5); NEUTROPHILS % 52.9 % (36.0-66.0); PLATELET COUNT, AUTOMATED 221 10^3/uL (150-450); RED BLOOD COUNT 4.75 10^6/uL (4.30-6.10); WHITE BLOOD COUNT 3.9 10^3/uL (4.0-10.0)
[2022-01-29 11:55] LABS: ALBUMIN 3.7 GM/DL (3.2-5.2); ALT/SGPT 31 U/L (12-78); BILIRUBIN,TOTAL 0.7 MG/DL (0.2-1.0); BLOOD UREA NITROGEN 11 MG/DL (7-18); CALCIUM LEVEL 8.5 MG/DL (8.8-10.2); CARBON DIOXIDE LEVEL 30 MEQ/L (21-32); CHLORIDE LEVEL 106 MEQ/L (98-107); CHOLESTEROL LEVEL 133 MG/DL (<200); CHOLESTEROL RISK RATIO 1.641 (<5); CREATININE FOR GFR 0.81 MG/DL (0.70-1.30); GLOMERULAR FILTRATION RATE > 60.0 (>49); GLUCOSE, FASTING 85 MG/DL (70-100); HDL CHOLESTEROL 81 MG/DL (>40); LDL CHOLESTEROL 39 MG/DL (<100); NON-HDL-C 52 MG/DL; POTASSIUM SERUM 4.6 MEQ/L (3.5-5.1); SODIUM LEVEL 139 MEQ/L (136-145); TOTAL PROTEIN 6.9 GM/DL (6.4-8.2); TRIGLYCERIDES LEVEL 66 MG/DL (<150)
== END ==
LOC: M PLALAB 09:04
PROVIDERS: ATTEND Family Medicine
DX: E78.5 Hyperlipidemia, unspecified (principal)

== ENCOUNTER → 2022-03-19 | Outpatient (CLI) | payer MEDICARE | LOC: M PLALAB 09:16 | PROVIDERS: ATTEND Urology | DX: C61 Malignant neoplasm of prostate (principal) ==

== ENCOUNTER → 2022-07-08 | Outpatient (CLI) | payer MEDICARE | LOC: M PLALAB 09:27 | PROVIDERS: ATTEND Urology | DX: C61 Malignant neoplasm of prostate (principal) ==

== ENCOUNTER → 2022-09-17 | Outpatient (REF) | payer MEDICARE | LOC: M PLALAB 10:02 | PROVIDERS: ATTEND Urology | DX: C61 Malignant neoplasm of prostate (principal) ==

== ENCOUNTER → 2022-12-16 | Outpatient (CLI) | payer MEDICARE | LOC: M PLALAB 09:15 | PROVIDERS: ATTEND Urology | DX: C61 Malignant neoplasm of prostate (principal) ==

== ENCOUNTER 2023-01-05 09:14 | Day surgery (SDC) | payer MEDICARE ==
[~2023-01-05] VITALS: Ht 167.6 cm; Wt 76.3 kg
[~2023-01-05 09:14] MED LIST changes: +NS 1,000 ML IV ONE
[2023-01-05] MEDS ORDERED: propofoL 500 MG/50 ML VIAL As Ordered ONE (11:29)
[2023-01-05] MEDS ORDERED: LIDOCAINE 2% 100MG/5ML SDV (FOR ANES.) As Ordered ONE (11:29)
[2023-01-05 12:03] VITALS: BP 124/67
== END 2023-01-05 12:04 | disposition home or self-care (01) ==
LOC: M OPP 09:14
PROVIDERS: ATTEND Internal Medicine Gastroenterology
DX: Z86.010 Personal history of colon polyps (principal); D12.6 Benign neoplasm of colon, unspecified; K64.0 First degree hemorrhoids; Z87.891 Personal history of nicotine dependence; Z79.02 Long term (current) use of antithrombotics/antiplatelets

== ENCOUNTER → 2023-03-17 | Outpatient (CLI) | payer MEDICARE ==
[~2023-03-17] MED LIST changes: -NS 1,000 ML IV ONE
[2023-03-17 13:16] LABS: BASO # 0.1 10^3/uL (0.0-0.2); BASO % 1.2 % (0.0-1.0); EOS # 0.2 10^3/uL (0.0-0.5); EOS % 3.1 % (0.0-3.0); HEMATOCRIT 41.9 % (42.0-52.0); HEMOGLOBIN 13.9 g/dl (13.5-17.5); LYMPH # 0.9 10^3/uL (1.5-5.0); LYMPH % 17.8 % (24.0-44.0); MEAN CORPUSCULAR HGB CONC 33.2 g/dl (32.0-36.5); MEAN CORPUSCULAR VOLUME 93.3 fl (80.0-96.0); MONO # 0.6 10^3/uL (0.0-0.8); MONO % 12.5 % (2.0-8.0); NEUTROPHILS # 3.2 10^3/uL (1.5-8.5); PLATELET COUNT, AUTOMATED 204 10^3/uL (150-450); RED BLOOD COUNT 4.49 10^6/uL (4.30-6.10); WHITE BLOOD COUNT 4.9 10^3/uL (4.0-10.0)
[2023-03-17 13:52] LABS: ALBUMIN 3.9 G/DL (3.2-5.2); ALKALINE PHOSPHATASE 62 U/L (46-116); ALT/SGPT 23 U/L (7.0-40); AST/SGOT 22 U/L (<34); BILIRUBIN,TOTAL 0.6 MG/DL (0.3-1.2); BLOOD UREA NITROGEN 15 MG/DL (9-23); CALCIUM LEVEL 8.6 MG/DL (8.3-10.6); CARBON DIOXIDE LEVEL 28 MMOL/L (20-31); CHLORIDE LEVEL 107 MMOL/L (98-107); CHOLESTEROL LEVEL 150 MG/DL (<200); CHOLESTEROL RISK RATIO 1.88 (<5); GLOMERULAR FILTRATION RATE > 60.0 (>49); GLUCOSE, FASTING 82 MG/DL (74-106); HDL CHOLESTEROL 79.5 MG/DL (>40); LDL CHOLESTEROL 58.9 MG/DL (<100); NON-HDL-C 70.5 MG/DL; POTASSIUM SERUM 4.9 MMOL/L (3.5-5.1); SODIUM LEVEL 141 MMOL/L (136-145); TOTAL PROTEIN 6.5 G/DL (5.7-8.2); TRIGLYCERIDES LEVEL 58 MG/DL (<150)
[2023-03-17 14:27] LABS: HEPATITIS C VIRUS ABY INDEX 0.11 INDEX (<0.8)
== END ==
LOC: M PLALAB 11:38
PROVIDERS: ATTEND Family Medicine
DX: Z00.00 Encounter for general adult medical examination without abnormal findings (principal); Z11.59 Encounter for screening for other viral diseases

== ENCOUNTER → 2023-03-17 | Outpatient (CLI) | payer MEDICARE | LOC: M PLALAB 11:36 | PROVIDERS: ATTEND Urology | DX: C61 Malignant neoplasm of prostate (principal) ==

== ENCOUNTER → 2023-06-30 | Outpatient (CLI) | payer MEDICARE | LOC: M PLALAB 09:55 | PROVIDERS: ATTEND Urology | DX: C61 Malignant neoplasm of prostate (principal) ==

== ENCOUNTER → 2023-08-25 | Outpatient (CLI) | payer MEDICARE ==
[2023-08-25 13:27] LABS: BASO # 0.1 10^3/uL (0.0-0.2); BASO % 1.3 % (0.0-1.0); EOS # 0.2 10^3/uL (0.0-0.5); HEMATOCRIT 43.9 % (42.0-52.0); HEMOGLOBIN 14.4 g/dl (13.5-17.5); LYMPH # 1.1 10^3/uL (1.5-5.0); LYMPH % 23.3 % (24.0-44.0); MEAN CORPUSCULAR HEMOGLOBIN 30.9 pg (27.0-33.0); MEAN CORPUSCULAR HGB CONC 32.8 g/dl (32.0-36.5); MEAN CORPUSCULAR VOLUME 94.2 fl (80.0-96.0); MONO # 0.7 10^3/uL (0.0-0.8); MONO % 14.8 % (2.0-8.0); NEUTROPHILS # 2.7 10^3/uL (1.5-8.5); NEUTROPHILS % 56.4 % (36.0-66.0); PLATELET COUNT, AUTOMATED 199 10^3/uL (150-450); RED BLOOD COUNT 4.66 10^6/uL (4.30-6.10); WHITE BLOOD COUNT 4.7 10^3/uL (4.0-10.0)
[2023-08-25 13:52] LABS: ALKALINE PHOSPHATASE 57 U/L (46-116); ALT/SGPT 28 U/L (7.0-40); AST/SGOT 24 U/L (<34); BLOOD UREA NITROGEN 14 MG/DL (9-23); CALCIUM LEVEL 8.6 MG/DL (8.3-10.6); CARBON DIOXIDE LEVEL 30 MMOL/L (20-31); CHLORIDE LEVEL 106 MMOL/L (98-107); CREATININE FOR GFR 0.73 MG/DL (0.70-1.30); GLOMERULAR FILTRATION RATE > 60.0 (>49); GLUCOSE, FASTING 78 MG/DL (74-106); POTASSIUM SERUM 5.1 MMOL/L (3.5-5.1); SODIUM LEVEL 141 MMOL/L (136-145); TOTAL PROTEIN 6.6 G/DL (5.7-8.2)
== END ==
LOC: M PLALAB 11:23
PROVIDERS: ATTEND Family Medicine
DX: Z01.818 Encounter for other preprocedural examination (principal)

== ENCOUNTER → 2023-09-15 | Outpatient (CLI) | payer MEDICARE | LOC: M PLALAB 09:44 | PROVIDERS: ATTEND Urology | DX: C61 Malignant neoplasm of prostate (principal) ==

== ENCOUNTER → 2024-01-20 | Outpatient (CLI) | payer MEDICARE | LOC: M PLALAB 09:06 | PROVIDERS: ATTEND Urology | DX: C61 Malignant neoplasm of prostate (principal) ==

== ENCOUNTER → 2024-05-24 | Outpatient (CLI) | payer MEDICARE ==
[2024-05-24 12:00] LABS: BASO # 0.1 10^3/uL (0.0-0.2); BASO % 1.4 % (0.0-1.0); EOS # 0.2 10^3/uL (0.0-0.5); EOS % 3.9 % (0.0-3.0); HEMATOCRIT 43.9 % (42.0-52.0); HEMOGLOBIN 14.3 g/dl (13.5-17.5); LYMPH # 1.1 10^3/uL (1.5-5.0); LYMPH % 22.2 % (24.0-44.0); MEAN CORPUSCULAR HEMOGLOBIN 30.6 pg (27.0-33.0); MEAN CORPUSCULAR HGB CONC 32.6 g/dl (32.0-36.5); MONO # 0.7 10^3/uL (0.0-0.8); MONO % 13.8 % (2.0-8.0); NEUTROPHILS # 2.9 10^3/uL (1.5-8.5); NEUTROPHILS % 58.5 % (36.0-66.0); PLATELET COUNT, AUTOMATED 207 10^3/uL (150-450); RED BLOOD COUNT 4.67 10^6/uL (4.30-6.10); WHITE BLOOD COUNT 4.9 10^3/uL (4.0-10.0)
[2024-05-24 12:07] LABS: ALKALINE PHOSPHATASE 71 U/L (46-116); ALT/SGPT 28 U/L (7.0-40); AST/SGOT 25 U/L (<34); BLOOD UREA NITROGEN 14 MG/DL (9-23); CALCIUM LEVEL 9.5 MG/DL (8.3-10.6); CARBON DIOXIDE LEVEL 29 MMOL/L (20-31); CHLORIDE LEVEL 106 MMOL/L (98-107); CHOLESTEROL LEVEL 175 MG/DL (<200); CHOLESTEROL RISK RATIO 2.19 (<5); CREATININE FOR GFR 0.84 MG/DL (0.70-1.30); GLOMERULAR FILTRATION RATE > 60.0 (>49); GLUCOSE, FASTING 97 MG/DL (74-106); HDL CHOLESTEROL 79.6 MG/DL (>40); LDL CHOLESTEROL 83.4 MG/DL (<100); NON-HDL-C 95.4 MG/DL; POTASSIUM SERUM 5.5 MMOL/L (3.5-5.1); SODIUM LEVEL 138 MMOL/L (136-145); TRIGLYCERIDES LEVEL 60 MG/DL (<150)
== END ==
LOC: M PLALAB 08:01
PROVIDERS: ATTEND Family Medicine
DX: Z00.00 Encounter for general adult medical examination without abnormal findings (principal); E78.00 Pure hypercholesterolemia, unspecified

== ENCOUNTER → 2024-05-24 | Outpatient (CLI) | payer MEDICARE | LOC: M PLALAB 07:59 | PROVIDERS: ATTEND Urology | DX: C61 Malignant neoplasm of prostate (principal) ==

== ENCOUNTER → 2024-09-24 | Outpatient (REF) | payer MEDICARE | LOC: M LABDRWAD 16:52 | PROVIDERS: ATTEND Urology | DX: C61 Malignant neoplasm of prostate (principal) ==

== ENCOUNTER → 2024-10-26 | Outpatient (CLI) | payer MEDICARE ==
[~2024-10-26] MED LIST changes: +ASPI81TA26 PO; +BICA50TA4 PO
== END ==
LOC: M ONCR 08:48
PROVIDERS: ATTEND General Practice
DX: C61 Malignant neoplasm of prostate (principal); Z90.79 Acquired absence of other genital organ(s); R97.21 Rising PSA following treatment for malignant neoplasm of prostate; Z80.0 Family history of malignant neoplasm of digestive organs; Z80.42 Family history of malignant neoplasm of prostate; Z87.891 Personal history of nicotine dependence; Z79.82 Long term (current) use of aspirin; Z79.899 Other long term (current) drug therapy

== ENCOUNTER → 2024-11-02 | Outpatient (CLI) | payer MEDICARE ==
[2024-11-02] MEDS: LEUPROLIDE 45MG SYRINGE KIT (LUPRON DEPOT) IM ONE (08:37)
== END ==
LOC: M ONCR 08:30
PROVIDERS: ATTEND General Practice
DX: C61 Malignant neoplasm of prostate (principal)
CPT/HCPCS: 96402; J9217

== ENCOUNTER → 2024-11-19 | Outpatient (RCR) | payer MEDICARE | LOC: M ONCR 11-02 07:49 | PROVIDERS: ATTEND General Practice | DX: Z51.0 Encounter for antineoplastic radiation therapy (principal); C61 Malignant neoplasm of prostate ==

== ENCOUNTER → 2024-12-19 | Outpatient (RCR) | payer MEDICARE | LOC: M ONCR 11-20 14:49 | PROVIDERS: ATTEND General Practice | DX: Z51.0 Encounter for antineoplastic radiation therapy (principal); C61 Malignant neoplasm of prostate ==

== ENCOUNTER → 2025-04-05 | Outpatient (CLI) | payer MEDICARE | LOC: M PLALAB 09:31 | PROVIDERS: ATTEND General Practice | DX: C61 Malignant neoplasm of prostate (principal) ==

== ENCOUNTER → 2025-04-05 | Outpatient (CLI) | payer MEDICARE ==
[2025-04-05 13:44] LABS: BASO # 0.1 10^3/uL (0.0-0.2); BASO % 1.8 % (0.0-1.0); EOS # 0.2 10^3/uL (0.0-0.5); EOS % 6.1 % (0.0-3.0); LYMPH # 0.4 10^3/uL (1.5-5.0); LYMPH % 11.2 % (24.0-44.0); MONO # 0.6 10^3/uL (0.0-0.8); MONO % 16.0 % (2.0-8.0); NEUTROPHILS # 2.5 10^3/uL (1.5-8.5); NEUTROPHILS % 64.6 % (36.0-66.0); PLATELET COUNT, AUTOMATED 232 10^3/uL (150-450)
[2025-04-05 14:06] LABS: ALT/SGPT 22 U/L (7.0-40); AST/SGOT 24 U/L (<34); CALCIUM LEVEL 9.1 MG/DL (8.3-10.6); CARBON DIOXIDE LEVEL 30 MMOL/L (20-31); CHLORIDE LEVEL 105 MMOL/L (98-107); CHOLESTEROL LEVEL 169 MG/DL (<200); CHOLESTEROL RISK RATIO 2.19 (<5); CREATININE FOR GFR 0.78 MG/DL (0.70-1.30); GLOMERULAR FILTRATION RATE > 90.0 (>49); LDL CHOLESTEROL 78.5 MG/DL (<100); NON-HDL-C 92.1 MG/DL; POTASSIUM SERUM 4.4 MMOL/L (3.5-5.1); SODIUM LEVEL 144 MMOL/L (136-145); TRIGLYCERIDES LEVEL 68 MG/DL (<150)
== END ==
LOC: M PLALAB 09:32
PROVIDERS: ATTEND Family Medicine
DX: Z00.00 Encounter for general adult medical examination without abnormal findings (principal); Z79.899 Other long term (current) drug therapy

== ENCOUNTER → 2025-04-12 | Outpatient (CLI) | payer MEDICARE | LOC: M ONCR 13:28 | PROVIDERS: ATTEND General Practice | DX: C61 Malignant neoplasm of prostate (principal); Z87.891 Personal history of nicotine dependence; Z79.82 Long term (current) use of aspirin; Z79.899 Other long term (current) drug therapy; Z90.79 Acquired absence of other genital organ(s); Z92.3 Personal history of irradiation; Z79.818 Long term (current) use of other agents affecting estrogen receptors and estrogen levels ==